=== PATIENT | female | born 1950 | race African-American/Black ===

== ENCOUNTER 2017-12-23 16:07 | Emergency (ER) | payer OTHER ==
[~2017-12-23] VITALS: Ht 162.6 cm; Wt 114.8 kg
[~2017-12-23 16:07] MED LIST: ALLEGRA180 MG PO; ATROVENT HFA14 GM INH; BENEFIBER1 G1; CARDIZEM CD300 MG PO; CIPROFLOXACIN500 M1 PO; MOBIC15 MG PO; PRINIVIL5 MG PO; PROVENTIL HFA6.7 G1; SYNTHROID150 MCG PO; VENTOLIN17 GM; ZOCOR 20 MG TAB20 M1 PO
[2017-12-23 16:09] VITALS: BP 116/53
[2017-12-23] MEDS ORDERED: PREDNISONE 20 M20 MG PO (16:49)
[2017-12-23] MEDS ORDERED: TESSALON PERLE100 MG PO (16:49)
[2017-12-23] MEDS ORDERED: ALBUTEROL2.5 MG/31 INH (16:49)
[2018-06-14] MEDS ORDERED: NORCO 5-325 TA1 EACH PO (07:02)
[2018-06-14] MEDS ORDERED: GLIPIZIDE 10 MG10 MG PO (07:02)
[2018-06-14] MEDS ORDERED: INDOMETHACIN 5050 M1 PO (07:03)
[2018-06-14] MEDS ORDERED: SINGULAIR 10 MG10 M1 PO (07:03)
[2018-06-14] MEDS ORDERED: METOPROLOL SUCC50 MG PO (07:03)
[2018-06-14] MEDS ORDERED: VITAMIN D1000 UNI1 PO (07:04)
[2018-06-14] MEDS ORDERED: B12INJ IM (07:04)
[2018-06-14] MEDS ORDERED: PERCOCET PO (08:41)
[2018-07-04] MEDS ORDERED: ALLEGRA ALLERG180 MG PO (09:04)
[2018-07-04] MEDS ORDERED: ZESTORETIC 20-1 EAC3 PO (09:09)
[2018-07-04] MEDS ORDERED: SYNTHROID125 MC1 PO (09:10)
[2018-07-04] MEDS ORDERED: CRESTOR10 MG PO (09:11)
[2018-07-04] MEDS ORDERED: BENEFIBER1 EAC2 PO (09:13)
[2018-07-04] MEDS ORDERED: NORVASC5 MG PO (09:18)
[2018-07-06] MEDS ORDERED: AUGMENTIN 875-1 EACH PO (18:29)
[2018-07-27] MEDS ORDERED: MIRALAX17 GM PO (08:24)
[2018-07-27] MEDS ORDERED: SINGULAIR 10 MG10 M1 PO (08:25)
[2018-07-27] MEDS ORDERED: PRINIVIL20 MG PO (08:25)
[2018-09-05] MEDS ORDERED: IRON325 PO (14:41)
[2018-09-05] MEDS ORDERED: VITAMIN B-12500 MCG IM (14:42)
== END 2017-12-23 18:02 | disposition home or self-care (01) ==
LOC: ER 16:07
DX: J10.1 Influenza due to other identified influenza virus with other respiratory manifestations (principal); E11.9 Type 2 diabetes mellitus without complications; I10 Essential (primary) hypertension; J45.909 Unspecified asthma, uncomplicated; Z87.442 Personal history of urinary calculi; Z88.8 Allergy status to other drugs, medicaments and biological substances; Z90.49 Acquired absence of other specified parts of digestive tract; Z90.711 Acquired absence of uterus with remaining cervical stump

== ENCOUNTER → 2018-07-30 | Outpatient (CLI) | payer OTHER ==
[~2018-07-30] VITALS: Ht 162.6 cm; Wt 116.1 kg
[~2018-07-30] MED LIST changes: +ALBUTEROL2.5 MG/31 INH; +ALLEGRA ALLERG180 MG PO; +AUGMENTIN 875-1 EACH PO; +B12INJ IM; +BENEFIBER1 EAC2 PO; +CRESTOR10 MG PO; +GLIPIZIDE 10 MG10 MG PO; +INDOMETHACIN 5050 M1 PO; +METOPROLOL SUCC50 MG PO; +MIRALAX17 GM PO; +NORCO 5-325 TA1 EACH PO; +NORVASC5 MG PO; +PERCOCET PO; +PREDNISONE 20 M20 MG PO; +PRINIVIL20 MG PO; +SINGULAIR 10 MG10 M1 PO; +SYNTHROID125 MC1 PO; +TESSALON PERLE100 MG PO; +VITAMIN D1000 UNI1 PO; +ZESTORETIC 20-1 EAC3 PO
== END | disposition home or self-care (01) ==
LOC: GI 12:46
DX: K57.30 Diverticulosis of large intestine without perforation or abscess without bleeding (principal); K64.8 Other hemorrhoids; I10 Essential (primary) hypertension; E78.00 Pure hypercholesterolemia, unspecified; E11.9 Type 2 diabetes mellitus without complications; J45.909 Unspecified asthma, uncomplicated; D64.9 Anemia, unspecified; Z90.711 Acquired absence of uterus with remaining cervical stump; Z90.49 Acquired absence of other specified parts of digestive tract; Z98.890 Other specified postprocedural states; Z88.8 Allergy status to other drugs, medicaments and biological substances; Z87.891 Personal history of nicotine dependence
CPT/HCPCS: 62110; 62900

== ENCOUNTER 2018-09-11 05:27 | Inpatient (IN) | payer OTHER ==
[~2018-09-11] VITALS: Ht 162.6 cm; Wt 113.9 kg
--- NOTE | ~2018-09-11 | PATH ---
[facility] [address] [place] [address] PATHOLOGY RPT PROCEDURE Name: HENRI GARZA Room #: 227-P ADM IN M.R.#: [id number] Admission: 09/11/18 Date of : 54 Discharge: Report #: [id number] Path Case #: [id number] [facility] Accession Number: [id number] . 01 Material submitted: . SIGMOID COLON . 01 Clinical history: . Diverticulitis . 02 Diagnosis: Large intestine, sigmoid colon, resection: - Chronic diverticulitis and a background of extensive diverticulosis. - Negative for dysplasia or malignancy. - Margins unremarkable. - One reactive lymph node. 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 02 Electronically signed: . Valeria Garcia MD, Pathologist NPI- [id number] . 01 Gross description: . The specimen is received in formalin, labeled "Henri Garza, sigmoid colon" and consists of an unoriented segment of large intestine measuring 13.8 cm in length and 2.0 cm in diameter with pericolic fat lining the entire specimen measuring up to 3.9 cm. One margin is closed with anh while the other is open. The serosa is pink-larose and smooth/shiny. Opening reveals a pink-larose mucosa with no masses or lesions. Further sectioning reveals multiple diverticula ranging from 0.1 cm to 0.9 cm. The diverticula extend into the pericolic fat and all appear grossly intact without perforation/hemorrhage. Log Tumbler sections are submitted as follows: . A1: Stapled margin A2: Open margin A3-A5: Diverticula (SDY; 09/12/2018) SYU/SYU . 02 Pathologist provided ICD-10: K57.32, K57.30 . 02 CPT . 253318 Specimen Comment: A courtesy [place] of [place] [address] PATHOLOGY RPT PROCEDURE Name: HENRI GARZA Room #: 227-P [facility].#: [id number] Admission: 09/11/18 Date of : 54 Discharge: Report #: [id number] Path Case #: [id number] Specimen Comment: [phone], . Specimen Comment: Report sent to / DR PEARSON Specimen Comment: A duplicate report has been generated due to demographic updates. Performed at: [address], [place], [place] [id number] MD César Kelley MD Phone: [phone] Performed at: [address] [id number] MD Valeria Garcia MD Phone: [phone]
[~2018-09-11 05:27] MED LIST changes: +IRON325 PO; +VITAMIN B-12500 MCG IM
[2018-09-11 09:01] LABS: HEMATOCRIT 36.7 % (37.0-47.0); HEMOGLOBIN 11.9 gm/dL (12.0-15.0)
[2018-09-11 11:05] VITALS: BP 147/75
[2018-09-11 17:08] VITALS: BP 126/78
[2018-09-11 19:11] VITALS: BP 135/77
[2018-09-12 03:48] VITALS: BP 126/65
[2018-09-12 06:42] LABS: ABSOLUTE NEUTROPHILS 12.2 thou/uL (1.4-8.2); BASOPHILS 0.2 % (0.0-2.0); HEMATOCRIT 34.3 % (37.0-47.0); HEMOGLOBIN 10.7 gm/dL (12.0-15.0); LYMPHOCYTES 6.2 % (24.0-44.0); MCH 26.8 pg (26.0-34.0); MCHC 31.1 g/dL (28.0-37.0); MCV 86.1 fL (80.0-100.0); PLATELET COUNT 400 thou/uL (150-400); POLYS 85.6 % (36.0-66.0); RBC 3.98 mil/uL (4.20-5.00); RDW 16.1 % (10.5-14.5); WBC 14.3 thou/uL (4.0-11.0)
[2018-09-12 06:59] LABS: ALBUMIN 2.4 g/dL (3.4-5.0); CALCIUM 8.1 mg/dL (8.5-10.1); CREATININE 1.7 mg/dL (0.6-1.0); MAGNESIUM 2.1 mg/dL (1.8-2.4); POTASSIUM 4.3 mmol/L (3.5-5.1); TOTAL BILIRUBIN 0.5 mg/dL (<0.1-1.0); TOTAL PROTEIN 7.4 g/dL (6.4-8.2)
[2018-09-12 09:30] VITALS: BP 119/66
[2018-09-12 20:00] VITALS: BP 121/56
[2018-09-13 07:22] LABS: ABSOLUTE NEUTROPHILS 12.6 thou/uL (1.4-8.2); BASOPHILS 0.6 % (0.0-2.0); EOSINOPHILS 0.1 % (0.0-3.0); HEMATOCRIT 29.8 % (37.0-47.0); HEMOGLOBIN 9.3 gm/dL (12.0-15.0); LYMPHOCYTES 12.5 % (24.0-44.0); MCH 27.1 pg (26.0-34.0); MCHC 31.4 g/dL (28.0-37.0); MCV 86.4 fL (80.0-100.0); MONOCYTES 10.2 % (1.0-8.0); PLATELET COUNT 367 thou/uL (150-400); POLYS 76.6 % (36.0-66.0); RBC 3.44 mil/uL (4.20-5.00); RDW 16.7 % (10.5-14.5); WBC 16.5 thou/uL (4.0-11.0)
[2018-09-13 07:30] VITALS: BP 126/61
[2018-09-13 07:35] LABS: CALCIUM 8.3 mg/dL (8.5-10.1); CREATININE 1.5 mg/dL (0.6-1.0); POTASSIUM 4.1 mmol/L (3.5-5.1)
[2018-09-13 19:34] VITALS: BP 151/63
[2018-09-14 07:04] LABS: CALCIUM 8.5 mg/dL (8.5-10.1); CREATININE 1.3 mg/dL (0.6-1.0)
[2018-09-14 07:11] LABS: ABSOLUTE NEUTROPHILS 11.9 thou/uL (1.4-8.2); BASOPHILS 0.7 % (0.0-2.0); EOSINOPHILS 0.8 % (0.0-3.0); HEMATOCRIT 29.8 % (37.0-47.0); HEMOGLOBIN 9.4 gm/dL (12.0-15.0); LYMPHOCYTES 11.7 % (24.0-44.0); MCH 27.2 pg (26.0-34.0); MCHC 31.7 g/dL (28.0-37.0); MCV 85.9 fL (80.0-100.0); MONOCYTES 7.7 % (1.0-8.0); PLATELET COUNT 356 thou/uL (150-400); POLYS 79.1 % (36.0-66.0); RBC 3.47 mil/uL (4.20-5.00); RDW 16.1 % (10.5-14.5)
[2018-09-14 08:26] VITALS: BP 147/76
[2018-09-14 11:53] VITALS: BP 147/76
[2018-09-14 19:49] VITALS: BP 137/59
[2018-09-15 08:00] VITALS: BP 139/76
[2018-09-15 11:58] LABS: HEMATOCRIT 35.1 % (37.0-47.0); HEMOGLOBIN 10.9 gm/dL (12.0-15.0); MCH 26.8 pg (26.0-34.0); MCV 86.7 fL (80.0-100.0); RBC 4.05 mil/uL (4.20-5.00); RDW 16.2 % (10.5-14.5); WBC 10.2 thou/uL (4.0-11.0)
[2018-09-15 11:59] LABS: CALCIUM 8.7 mg/dL (8.5-10.1); CREATININE 1.2 mg/dL (0.6-1.0); MAGNESIUM 1.7 mg/dL (1.8-2.4); POTASSIUM 3.7 mmol/L (3.5-5.1)
[2018-09-15 20:29] VITALS: BP 152/76
[2018-09-16 08:10] VITALS: BP 144/76
[2018-09-16 21:37] VITALS: BP 149/70
[2018-09-17 07:30] VITALS: BP 159/82
[2018-09-17] MEDS ORDERED: METRONIDAZOLE500 M4 PO (11:52)
[2018-09-17] MEDS ORDERED: ZOFRAN ODT4 MG PO (11:52)
[2018-09-17] MEDS ORDERED: LEVAQUIN 500 M500 M2 PO (11:52)
[2018-09-17] MEDS ORDERED: PEPCID20 MG PO (11:52)
== END 2018-09-17 15:43 | disposition home health service (06) | DRG 853 ==
LOC: 4E 05:27 → TBA 05:27 → SICU 05:27 → PRE 08:12 → 4E 16:12 → SICU 09-12 17:24 → ENTRNSPT 09-17 15:20 → EDTRNSPTSTS 09-17 15:23 → SICU 09-17 15:43
PROVIDERS: Internal Medicine; Surgery
PROC: 0DTN4ZZ Resection of Sigmoid Colon, Percutaneous Endoscopic Approach (ICD-10-PCS; principal; 2018-09-11)
PROC: 0DNN4ZZ Release Sigmoid Colon, Percutaneous Endoscopic Approach (ICD-10-PCS; principal; 2018-09-11)
DX: A41.9 Sepsis, unspecified organism (principal); E43 Unspecified severe protein-calorie malnutrition; K57.32 Diverticulitis of large intestine without perforation or abscess without bleeding; N17.9 Acute kidney failure, unspecified; Z68.41 Body mass index [BMI] 40.0-44.9, adult; E78.5 Hyperlipidemia, unspecified; J45.909 Unspecified asthma, uncomplicated; N18.3 Chronic kidney disease, stage 3 (moderate); E89.0 Postprocedural hypothyroidism; K66.0 Peritoneal adhesions (postprocedural) (postinfection); E11.22 Type 2 diabetes mellitus with diabetic chronic kidney disease; I12.9 Hypertensive chronic kidney disease with stage 1 through stage 4 chronic kidney disease, or unspecified chronic kidney disease; Z88.5 Allergy status to narcotic agent; Z88.6 Allergy status to analgesic agent; Z88.8 Allergy status to other drugs, medicaments and biological substances; Z90.49 Acquired absence of other specified parts of digestive tract; Z87.891 Personal history of nicotine dependence; Z90.710 Acquired absence of both cervix and uterus; Z79.1 Long term (current) use of non-steroidal anti-inflammatories (NSAID); Z79.899 Other long term (current) drug therapy
CPT/HCPCS: 10783; 15002; 50010; 50101; 50221; 50249; 50290; 50386; 50455; 50555; 50558; 50740; 50804; 51398; 51436; 51489; 52182; 52265; 53307; 53310; 54118; 56462; 56524; 56525; 56526; 56530; 56753; 57092; 62110; 62900; 70005

== ENCOUNTER → 2018-11-07 | Outpatient (CLI) | payer OTHER ==
[~2018-11-07] MED LIST changes: +LEVAQUIN 500 M500 M2 PO; +METRONIDAZOLE500 M4 PO; +PEPCID20 MG PO; +ZOFRAN ODT4 MG PO
== END ==
LOC: CAT 14:42
DX: K57.30 Diverticulosis of large intestine without perforation or abscess without bleeding (principal); N28.9 Disorder of kidney and ureter, unspecified; D73.89 Other diseases of spleen; M47.816 Spondylosis without myelopathy or radiculopathy, lumbar region; Z90.49 Acquired absence of other specified parts of digestive tract; Z90.710 Acquired absence of both cervix and uterus

== ENCOUNTER 2019-10-30 21:50 | Emergency (ER) | payer OTHER ==
[~2019-10-30] VITALS: Ht 172.7 cm; Wt 90.7 kg
[2019-10-31 01:22] LABS: ABSOLUTE NEUTROPHILS 8.6 thou/uL (1.4-8.2); BASOPHILS 1.4 % (0.0-2.0); EOSINOPHILS 0.6 % (0.0-3.0); HEMATOCRIT 36.2 % (37.0-47.0); HEMOGLOBIN 11.3 gm/dL (12.0-15.0); LYMPHOCYTES 19.8 % (24.0-44.0); MCH 26.9 pg (26.0-34.0); MCHC 31.3 g/dL (28.0-37.0); MCV 85.9 fL (80.0-100.0); MONOCYTES 6.4 % (1.0-8.0); PLATELET COUNT 428 thou/uL (150-400); POLYS 71.8 % (36.0-66.0); RBC 4.21 mil/uL (4.20-5.00); RDW 15.7 % (10.5-14.5); WBC 11.9 thou/uL (4.0-11.0)
[2019-10-31 01:26] LABS: PROTIME 10.5 Seconds (9.3-11.4)
[2019-10-31 01:38] LABS: CALCIUM 9.1 mg/dL (8.5-10.1); CREATININE 1.1 mg/dL (0.6-1.0); POTASSIUM 4.2 mmol/L (3.5-5.1)
[2019-10-31 01:44] LABS: TOTAL BILIRUBIN 0.3 mg/dL (<0.1-1.0); TOTAL PROTEIN 8.4 g/dL (6.4-8.2)
[2019-10-31 04:29] VITALS: BP 134/66
== END 2019-10-31 04:33 | disposition short-term general hospital (02) ==
LOC: ER 21:50
PROVIDERS: Physician Assistant
DX: S22.061A Stable burst fracture of T7-T8 vertebra, initial encounter for closed fracture (principal); S62.627A Displaced fracture of middle phalanx of left little finger, initial encounter for closed fracture; S93.492A Sprain of other ligament of left ankle, initial encounter; E11.9 Type 2 diabetes mellitus without complications; E78.5 Hyperlipidemia, unspecified; Z86.2 Personal history of diseases of the blood and blood-forming organs and certain disorders involving the immune mechanism; Z90.711 Acquired absence of uterus with remaining cervical stump; Z90.49 Acquired absence of other specified parts of digestive tract; Z88.6 Allergy status to analgesic agent; Z88.8 Allergy status to other drugs, medicaments and biological substances; W01.0XXA Fall on same level from slipping, tripping and stumbling without subsequent striking against object, initial encounter; Y93.G3 Activity, cooking and baking; Y92.89 Other specified places as the place of occurrence of the external cause; Y99.8 Other external cause status

== ENCOUNTER → 2020-04-15 | Outpatient (CLI) | payer OTHER ==
[2020-04-15 11:52] LABS: CREATININE 1.1 mg/dL (0.6-1.0)
== END ==
LOC: LAB 10:08
PROVIDERS: ATTEND Family Medicine
DX: K57.30 Diverticulosis of large intestine without perforation or abscess without bleeding (principal); N28.9 Disorder of kidney and ureter, unspecified; R31.9 Hematuria, unspecified; M47.816 Spondylosis without myelopathy or radiculopathy, lumbar region

== ENCOUNTER → 2020-06-01 | Outpatient (CLI) | payer OTHER | LOC: MRI 09:16 | PROVIDERS: ATTEND Orthopaedic Surgery Sports Medicine | DX: M47.817 Spondylosis without myelopathy or radiculopathy, lumbosacral region (principal); M48.061 Spinal stenosis, lumbar region without neurogenic claudication; N39.0 Urinary tract infection, site not specified; I10 Essential (primary) hypertension; E11.22 Type 2 diabetes mellitus with diabetic chronic kidney disease; N18.3 Chronic kidney disease, stage 3 (moderate); E78.5 Hyperlipidemia, unspecified; M43.21 Fusion of spine, occipito-atlanto-axial region; M25.78 Osteophyte, vertebrae ==